=== PATIENT | male | born 1940 | race Caucasian/White ===

== ENCOUNTER 2020-09-14 07:20 | Inpatient (IN) ==
[2020-09-14 08:31] LABS: Basophils % 0.2 %; Eosinophils % 0.1 %; Immature Granulocytes % 0.3 % (0-4); Red Cell Distribution Width 19.6 % (11.5-14.5)
[2020-09-14 08:33] LABS: Hematocrit 32.2 % (37.5-50.1); Hemoglobin 9.1 g/dL (12.9-16.9); Lymphocytes # 1.6 K/mcL (0.6-4.6); Lymphocytes % 12.7 %; Mean Corpuscular HGB Conc 28.3 g/dL (31.6-35.5); Mean Corpuscular Hemoglobin 18.1 pg (28.0-33.3); Mean Corpuscular Volume 64.1 fL (83.0-100.0); Monocytes % 7.9 %; Neutrophils # 9.7 K/mcL (1.6-8.9); Platelet Count 241 K/mcL (140-400); Red Blood Count 5.02 M/mcL (4.19-5.50); Segmented Neutrophils % 78.8 %; White Blood Count 12.3 K/mcL (4.3-11.1)
[2020-09-14 08:34] LABS: Bilirubin,Urine Negative (Negative); Blood,Urine Negative (Negative); Clarity,Urine Clear (Clear); Color,Urine Yellow (Yellow); Glucose,Urine (UA) Normal (Normal); Ketones,Urine Negative (Negative); Leukocyte Esterase,Urine Negative (Negative); Nitrite,Urine Negative (Negative); PH,Urine 5.5 pH Units (5.0-8.0); Protein,Urine Trace mg/dL (Neg-Trace); Specific Gravity,Urine 1.019 (1.010-1.025); Urobilinogen,Urine Normal (Normal)
[2020-09-14 08:35] LABS: Amphetamine Screen,Urine Negative ng/mL (Cutoff=1000); Barbiturate Screen,Urine Negative ng/mL (Cutoff=200)
[2020-09-14 08:36] LABS: Benzodiazepines Screen,Urine Negative ng/mL (Cutoff=300); Cannabinoid Screen,Urine Negative ng/mL (Cutoff = 50); Cocaine Screen,Urine Negative ng/mL (Cutoff= 300); Opiate Screen,Urine Negative ng/mL (Cutoff=300); Phencyclidine Screen,Urine Negative ng/mL (Cutoff=25)
[2020-09-14 08:51] LABS: Alanine Aminotransferase 17 Units/L (7-52); Albumin 4.3 g/dL (3.5-5.7); Albumin/Globulin Ratio 1.6 (1.1-2.2); Alkaline Phosphatase 77 Units/L (34-104); Aspartate Amino Transferase 39 Units/L (13-39); BUN/Creatinine Ratio 20 (6-26); Bilirubin,Direct 0.3 mg/dL (0.0-0.2); Bilirubin,Indirect 0.7 mg/dL (0.0-1.0); Blood Urea Nitrogen 45 mg/dL (8-23); Calcium 9.8 mg/dL (8.6-10.3); Carbon Dioxide 24 mEq/L (23-29); Chloride 105 mEq/L (98-107); Ethanol < 10 mg/dL (Less than 10); Globulin 2.7 g/dL (2.4-3.5); Glucose 114 mg/dL (70-105); Osmolality,Calculated 304 (280-300); Potassium 4.3 mEq/L (3.5-5.1); Sodium 141 mEq/L (136-145); Troponin I 0.03 ng/mL (< 0.04); eGFR For African Americans 35 (> 60); eGFR For Non-African Americans 29 (> 60)
[2020-09-14 09:02] LABS: Hypochromasia Present (Not Present); Microcytosis Present (Not Present)
[2020-09-14 09:03] LABS: Platelet Estimate Normal (Normal)
[2020-09-14] MEDS ORDERED: 0.9 % Sodium Chloride 500 ML IVC ONE (09:50)
[2020-09-14] MEDS ORDERED: Naloxone 0.4 MG/ML INJ IVP PRN (12:21)
[2020-09-14] MEDS ORDERED: *HR* Dextrose 50 % in Water (Vial) 50 ML VIAL IVP PRN ×2 (14:32→14:34)
[2020-09-14] MEDS ORDERED: Dextrose Gel 15 GM/37.5 ML TUBE PO PRN ×4 (14:32→14:34)
[2020-09-14] MEDS ORDERED: D5% in Water 1,000 ML IVC PRN ×2 (14:32→14:34)
[2020-09-14] MEDS: Piperacillin/Tazobactam 3.375 GM in 0.9 % Sodium Chloride Mini Bag 100 ML IVPB SCH ×2 (15:15→17:48)
[2020-09-14] MEDS: 0.9 % Sodium Chloride 1,000 ML IVC SCH (15:15)
[2020-09-14] MEDS: rOPINIRole 1 MG TABLET PO SCH ×2 (15:16→20:27)
[2020-09-14] MEDS: Haloperidol Lactate 5 MG/ML VIAL IM PRN (15:16)
[2020-09-14 16:24] LABS: Estimated Average Glucose 169 mg/dl; Hemoglobin A1C 7.5 %
[2020-09-14] MEDS: Vancomycin 1,250 MG/262.5 ML IV.SOLN IVPB SCH (17:46)
[2020-09-14] MEDS: Insulin LISPRO 300 UNITS/3 ML VIAL SUBQ SCH (17:54)
[2020-09-14] MEDS: *HR* Heparin 5,000 UNIT/ML VIAL SQ SCH (19:34)
[2020-09-14] MEDS ORDERED: Insulin LISPRO 300 UNITS/3 ML VIAL SUBQ SCH (21:00)
[2020-09-15] MEDS: Piperacillin/Tazobactam 3.375 GM in 0.9 % Sodium Chloride Mini Bag 100 ML IVPB SCH ×4 (00:18→23:48)
[2020-09-15] MEDS ORDERED: Haloperidol Lactate 5 MG/ML VIAL IVP ONE (03:30)
[2020-09-15] MEDS ORDERED: *HR* Metoprolol 5 MG/5 ML VIAL IVP ONE (05:07)
[2020-09-15] MEDS: 0.9 % Sodium Chloride 1,000 ML IVC SCH (05:33)
[2020-09-15] MEDS: *HR* Heparin 5,000 UNIT/ML VIAL SQ SCH ×2 (05:34→16:38)
[2020-09-15] MEDS: Insulin LISPRO 300 UNITS/3 ML VIAL SUBQ SCH ×4 (07:51→20:56)
[2020-09-15] MEDS ORDERED: Perflutren Lipid Microsphere 1.3 ML in 0.9 % Sodium Chloride 8.7 ML IVP PRN ×2 (08:59→19:46)
[2020-09-15] MEDS ORDERED: Aspirin Enteric Coated 81 MG Tablet PO SCH (09:00)
[2020-09-15] MEDS ORDERED: BuPROPion XL (24 HR) 150 MG TABLET PO SCH (09:00)
[2020-09-15] MEDS: rOPINIRole 1 MG TABLET PO SCH ×3 (09:17→20:56)
[2020-09-15 09:45] LABS: Basophils % 0.3 %; Hemoglobin 8.5 g/dL (12.9-16.9); Red Cell Distribution Width 19.7 % (11.5-14.5)
[2020-09-15 09:46] LABS: Eosinophils % 0.3 %; Hematocrit 31.1 % (37.5-50.1); Immature Granulocytes % 0.3 % (0-4); Lymphocytes # 1.4 K/mcL (0.6-4.6); Lymphocytes % 11.9 %; Mean Corpuscular HGB Conc 27.3 g/dL (31.6-35.5); Mean Corpuscular Hemoglobin 17.8 pg (28.0-33.3); Mean Corpuscular Volume 65.2 fL (83.0-100.0); Mean Platelet Volume 10.4 fL (9.4-12.4); Monocytes # 0.7 K/mcL (0.0-1.3); Monocytes % 5.5 %; Neutrophils # 9.7 K/mcL (1.6-8.9); Platelet Count 214 K/mcL (140-400); Red Blood Count 4.77 M/mcL (4.19-5.50); Segmented Neutrophils % 81.7 %; White Blood Count 11.9 K/mcL (4.3-11.1)
[2020-09-15 10:02] LABS: Calcium 9.3 mg/dL (8.6-10.3); Magnesium 1.5 mg/dL (1.6-2.6); Phosphorous 3.1 mg/dL (2.7-4.5)
[2020-09-15] MEDS ORDERED: Sodium Bicarbonate 75 MEQ in 0.45 % Sodium Chloride 1,000 ML IVC SCH (10:30)
[2020-09-15 12:02] LABS: Hypochromasia Present (Not Present); Microcytosis Present (Not Present); Platelet Estimate Normal (Normal)
[2020-09-15] MEDS ORDERED: ROTIGOTINE TP SCH (13:15)
[2020-09-15] MEDS: Haloperidol Lactate 5 MG/ML VIAL IM PRN (16:18)
[2020-09-15] MEDS: Vancomycin 1,250 MG/262.5 ML IV.SOLN IVPB SCH (16:18)
[2020-09-15] MEDS ORDERED: ROPIVACAINE/PF/NS 0.25% 1 EACH SYRINGE INTRAART ONE (18:28)
[2020-09-15] MEDS ORDERED: Naloxone 0.4 MG/ML INJ IVP PRN (19:46)
[2020-09-15] MEDS ORDERED: Dextrose Gel 15 GM/37.5 ML TUBE PO PRN ×4 (19:46)
[2020-09-15] MEDS ORDERED: D5% in Water 1,000 ML IVC PRN (19:46)
[2020-09-15] MEDS ORDERED: Haloperidol Lactate 5 MG/ML VIAL IM PRN (19:46)
[2020-09-15] MEDS ORDERED: *HR* Dextrose 50 % in Water (Vial) 50 ML VIAL IVP PRN (19:46)
[2020-09-15] MEDS: Sodium Bicarbonate 75 MEQ in 0.45 % Sodium Chloride 1,000 ML IVC SCH (23:48)
[2020-09-16 02:08] LABS: Basophils % 0.2 %; Eosinophils # 0.1 K/mcL (0.0-0.6); Eosinophils % 0.4 %; Hematocrit 30.5 % (37.5-50.1); Hemoglobin 8.5 g/dL (12.9-16.9); Immature Granulocytes % 0.2 % (0-4); Lymphocytes # 1.5 K/mcL (0.6-4.6); Lymphocytes % 11.5 %; Mean Corpuscular HGB Conc 27.9 g/dL (31.6-35.5); Mean Corpuscular Volume 64.5 fL (83.0-100.0); Mean Platelet Volume 10.7 fL (9.4-12.4); Monocytes # 0.7 K/mcL (0.0-1.3); Platelet Count 214 K/mcL (140-400); Red Blood Count 4.73 M/mcL (4.19-5.50); Red Cell Distribution Width 19.9 % (11.5-14.5); Segmented Neutrophils % 82.7 %
[2020-09-16 02:12] LABS: Anisocytosis 1+ (Not Present); Hypochromasia Present (Not Present); Microcytosis Present (Not Present); Neutrophils # 10.8 K/mcL (1.6-8.9); Platelet Estimate Normal (Normal)
[2020-09-16 02:27] LABS: BUN/Creatinine Ratio 23 (6-26); Blood Urea Nitrogen 27 mg/dL (8-23); Calcium 8.8 mg/dL (8.6-10.3); Carbon Dioxide 20 mEq/L (23-29); Chloride 111 mEq/L (98-107); Creatine Kinase 818 Units/L (30-223); Glucose 85 mg/dL (70-105); Magnesium 1.8 mg/dL (1.6-2.6); Osmolality,Calculated 304 (280-300); Phosphorous 2.8 mg/dL (2.7-4.5); Potassium 3.5 mEq/L (3.5-5.1); Sodium 145 mEq/L (136-145); eGFR For African Americans > 60 (> 60); eGFR For Non-African Americans 59 (> 60)
[2020-09-16 02:33] LABS: Iron 17 mcg/dL (65-175)
[2020-09-16 02:43] LABS: Ferritin 14 ng/mL (20-250)
[2020-09-16 02:49] LABS: Folate 19.8 ng/mL (3.0-16.0)
[2020-09-16] MEDS: *HR* Heparin 5,000 UNIT/ML VIAL SQ SCH ×2 (03:47→16:28)
[2020-09-16 03:52] LABS: % Iron Saturation 4 % (20-55); Transferrin 270 mg/dL (203-362)
[2020-09-16] MEDS: Insulin LISPRO 300 UNITS/3 ML VIAL SUBQ SCH ×4 (07:24→19:47)
[2020-09-16] MEDS: Piperacillin/Tazobactam 3.375 GM in 0.9 % Sodium Chloride Mini Bag 100 ML IVPB SCH ×3 (10:49→23:22)
[2020-09-16] MEDS: rOPINIRole 1 MG TABLET PO SCH ×3 (10:50→19:55)
[2020-09-16] MEDS: Aspirin Enteric Coated 81 MG Tablet PO SCH (10:50)
[2020-09-16] MEDS: [UNRECOGNIZED DRUG - OTHER] TP SCH (10:51)
[2020-09-16] MEDS: ROTIGOTINE TP SCH (10:51)
[2020-09-16] MEDS: Sodium Bicarbonate 75 MEQ in 0.45 % Sodium Chloride 1,000 ML IVC SCH (12:25)
[2020-09-16] MEDS: Vancomycin 1,250 MG/262.5 ML IV.SOLN IVPB SCH (16:29)
[2020-09-17] MEDS: *HR* Heparin 5,000 UNIT/ML VIAL SQ SCH ×2 (05:15→17:57)
[2020-09-17 07:15] LABS: Basophils % 0.3 %
[2020-09-17 07:16] LABS: Eosinophils # 0.2 K/mcL (0.0-0.6); Eosinophils % 2.3 %; Hematocrit 29.3 % (37.5-50.1); Hemoglobin 8.2 g/dL (12.9-16.9); Immature Granulocytes % 0.4 % (0-4); Lymphocytes # 1.7 K/mcL (0.6-4.6); Lymphocytes % 21.6 %; Mean Corpuscular Hemoglobin 18.3 pg (28.0-33.3); Mean Corpuscular Volume 65.3 fL (83.0-100.0); Mean Platelet Volume 10.3 fL (9.4-12.4); Monocytes # 0.5 K/mcL (0.0-1.3); Neutrophils # 5.4 K/mcL (1.6-8.9); Platelet Count 198 K/mcL (140-400); Red Blood Count 4.49 M/mcL (4.19-5.50); Red Cell Distribution Width 19.9 % (11.5-14.5); Segmented Neutrophils % 69.4 %; White Blood Count 7.8 K/mcL (4.3-11.1)
[2020-09-17 07:39] LABS: Blood Urea Nitrogen 20 mg/dL (8-23); Calcium 8.4 mg/dL (8.6-10.3); Carbon Dioxide 25 mEq/L (23-29); Chloride 106 mEq/L (98-107); Creatine Kinase 366 Units/L (30-223); Glucose 110 mg/dL (70-105); Osmolality,Calculated 295 (280-300); Potassium 3.2 mEq/L (3.5-5.1); Sodium 141 mEq/L (136-145)
[2020-09-17 07:45] LABS: Acanthocytes 1+ (Not Present); Hypochromasia Present (Not Present); Platelet Estimate Normal (Normal); Poikilocytosis 1+ (Not Present)
[2020-09-17] MEDS: Insulin LISPRO 300 UNITS/3 ML VIAL SUBQ SCH ×4 (08:32→20:35)
[2020-09-17] MEDS: ROTIGOTINE TP SCH (09:11)
[2020-09-17] MEDS: [UNRECOGNIZED DRUG - OTHER] TP SCH (09:11)
[2020-09-17] MEDS: Aspirin Enteric Coated 81 MG Tablet PO SCH (09:12)
[2020-09-17] MEDS: rOPINIRole 1 MG TABLET PO SCH ×3 (09:12→20:33)
[2020-09-17] MEDS: Piperacillin/Tazobactam 3.375 GM in 0.9 % Sodium Chloride Mini Bag 100 ML IVPB SCH ×3 (09:12→23:46)
[2020-09-17 09:58] LABS: BUN/Creatinine Ratio 17 (6-26); eGFR For African Americans > 60 (> 60); eGFR For Non-African Americans 59 (> 60)
[2020-09-17] MEDS: Vancomycin 1,250 MG/262.5 ML IV.SOLN IVPB SCH (17:56)
[2020-09-18] MEDS: Piperacillin/Tazobactam 3.375 GM in 0.9 % Sodium Chloride Mini Bag 100 ML IVPB SCH ×3 (02:04→17:18)
[2020-09-18 05:24] LABS: Immature Granulocytes % 0.2 % (0-4); Mean Platelet Volume 10.1 fL (9.4-12.4); Monocytes % 6.5 %
[2020-09-18 05:25] LABS: Basophils % 0.2 %; Eosinophils # 0.2 K/mcL (0.0-0.6); Eosinophils % 2.6 %; Hematocrit 29.2 % (37.5-50.1); Hemoglobin 8.2 g/dL (12.9-16.9); Lymphocytes # 1.7 K/mcL (0.6-4.6); Lymphocytes % 21.1 %; Mean Corpuscular HGB Conc 28.1 g/dL (31.6-35.5); Mean Corpuscular Hemoglobin 18.4 pg (28.0-33.3); Mean Corpuscular Volume 65.5 fL (83.0-100.0); Monocytes # 0.5 K/mcL (0.0-1.3); Neutrophils # 5.6 K/mcL (1.6-8.9); Platelet Count 209 K/mcL (140-400); Red Blood Count 4.46 M/mcL (4.19-5.50); Red Cell Distribution Width 19.9 % (11.5-14.5); Segmented Neutrophils % 69.4 %; White Blood Count 8.1 K/mcL (4.3-11.1)
[2020-09-18] MEDS: *HR* Heparin 5,000 UNIT/ML VIAL SQ SCH ×2 (05:35→17:20)
[2020-09-18 05:45] LABS: BUN/Creatinine Ratio 15 (6-26); Blood Urea Nitrogen 18 mg/dL (8-23); Calcium 8.5 mg/dL (8.6-10.3); Carbon Dioxide 23 mEq/L (23-29); Chloride 108 mEq/L (98-107); Glucose 106 mg/dL (70-105); Magnesium 1.4 mg/dL (1.6-2.6); Osmolality,Calculated 294 (280-300); Potassium 3.5 mEq/L (3.5-5.1); Sodium 141 mEq/L (136-145); eGFR For African Americans > 60 (> 60); eGFR For Non-African Americans 59 (> 60)
[2020-09-18] MEDS ORDERED: Magnesium Sulfate 1 GM/102 ML PIGGYBACK IVPB ONE (07:34)
[2020-09-18] MEDS: Insulin LISPRO 300 UNITS/3 ML VIAL SUBQ SCH ×4 (09:40→23:42)
[2020-09-18] MEDS: [UNRECOGNIZED DRUG - OTHER] TP SCH (09:42)
[2020-09-18] MEDS: ROTIGOTINE TP SCH (09:42)
[2020-09-18] MEDS: rOPINIRole 1 MG TABLET PO SCH ×3 (09:43→21:07)
[2020-09-18] MEDS: Aspirin Enteric Coated 81 MG Tablet PO SCH (09:44)
[2020-09-18 12:53] LABS: Creatine Kinase 220 Units/L (30-223)
[2020-09-18 14:03] LABS: Thyroid Stimulating Hormone 2.491 mcIU/mL (0.340-5.600)
[2020-09-18] MEDS: Vancomycin 1,250 MG/262.5 ML IV.SOLN IVPB SCH (17:19)
[2020-09-19 02:07] LABS: Basophils % 0.3 %; Eosinophils # 0.1 K/mcL (0.0-0.6); Eosinophils % 1.9 %; Hematocrit 29.7 % (37.5-50.1); Hemoglobin 8.1 g/dL (12.9-16.9); Immature Granulocytes % 0.3 % (0-4); Lymphocytes # 1.4 K/mcL (0.6-4.6); Lymphocytes % 20.2 %; Mean Corpuscular HGB Conc 27.3 g/dL (31.6-35.5); Mean Corpuscular Volume 66.1 fL (83.0-100.0); Mean Platelet Volume 10.1 fL (9.4-12.4); Monocytes # 0.5 K/mcL (0.0-1.3); Monocytes % 7.1 %; Neutrophils # 4.8 K/mcL (1.6-8.9); Platelet Count 225 K/mcL (140-400); Red Blood Count 4.49 M/mcL (4.19-5.50); Red Cell Distribution Width 20.6 % (11.5-14.5); Segmented Neutrophils % 70.2 %; White Blood Count 6.8 K/mcL (4.3-11.1)
[2020-09-19] MEDS: Piperacillin/Tazobactam 3.375 GM in 0.9 % Sodium Chloride Mini Bag 100 ML IVPB SCH (02:12)
[2020-09-19 02:25] LABS: BUN/Creatinine Ratio 13 (6-26); Blood Urea Nitrogen 16 mg/dL (8-23); Calcium 8.6 mg/dL (8.6-10.3); Carbon Dioxide 22 mEq/L (23-29); Chloride 109 mEq/L (98-107); Glucose 128 mg/dL (70-105); Magnesium 1.5 mg/dL (1.6-2.6); Osmolality,Calculated 295 (280-300); Potassium 3.6 mEq/L (3.5-5.1); Sodium 141 mEq/L (136-145); eGFR For African Americans > 60 (> 60); eGFR For Non-African Americans 57 (> 60)
[2020-09-19 02:33] LABS: Anisocytosis 1+ (Not Present); Hypochromasia Present (Not Present); Microcytosis Present (Not Present); Ovalocytes 1+ (Not Present); Platelet Estimate Normal (Normal); Poikilocytosis 1+ (Not Present)
[2020-09-19] MEDS: *HR* Heparin 5,000 UNIT/ML VIAL SQ SCH ×2 (05:38→17:32)
[2020-09-19] MEDS ORDERED: Magnesium Sulfate 1 GM/102 ML PIGGYBACK IVPB ONE (07:38)
[2020-09-19] MEDS: Insulin LISPRO 300 UNITS/3 ML VIAL SUBQ SCH ×4 (08:14→23:49)
[2020-09-19] MEDS: ROTIGOTINE TP SCH (08:39)
[2020-09-19] MEDS: [UNRECOGNIZED DRUG - OTHER] TP SCH (08:39)
[2020-09-19] MEDS: cephALEXin 500 MG CAPSULE PO SCH ×3 (08:40→21:18)
[2020-09-19] MEDS: Aspirin Enteric Coated 81 MG Tablet PO SCH (08:40)
[2020-09-19] MEDS: rOPINIRole 1 MG TABLET PO SCH ×3 (08:41→21:17)
[2020-09-19] MEDS: Artificial Tears SOLN 15 ML BOTTLE BOTH EYES PRN (17:33)
[2020-09-20 04:54] LABS: Hematocrit 29.6 % (37.5-50.1); Hemoglobin 8.2 g/dL (12.9-16.9); Mean Corpuscular HGB Conc 27.7 g/dL (31.6-35.5); Mean Corpuscular Hemoglobin 18.1 pg (28.0-33.3); Mean Corpuscular Volume 65.3 fL (83.0-100.0); Mean Platelet Volume 10.5 fL (9.4-12.4); Platelet Count 246 K/mcL (140-400); Red Blood Count 4.53 M/mcL (4.19-5.50); Red Cell Distribution Width 20.5 % (11.5-14.5); White Blood Count 7.5 K/mcL (4.3-11.1)
[2020-09-20 05:16] LABS: BUN/Creatinine Ratio 14 (6-26); Blood Urea Nitrogen 17 mg/dL (8-23); Calcium 8.6 mg/dL (8.6-10.3); Carbon Dioxide 22 mEq/L (23-29); Chloride 109 mEq/L (98-107); Glucose 120 mg/dL (70-105); Osmolality,Calculated 295 (280-300); Potassium 3.6 mEq/L (3.5-5.1); Sodium 141 mEq/L (136-145); eGFR For African Americans > 60 (> 60); eGFR For Non-African Americans 59 (> 60)
[2020-09-20] MEDS: *HR* Heparin 5,000 UNIT/ML VIAL SQ SCH ×2 (05:40→17:09)
[2020-09-20] MEDS: Aspirin Enteric Coated 81 MG Tablet PO SCH (09:00)
[2020-09-20] MEDS: Insulin LISPRO 300 UNITS/3 ML VIAL SUBQ SCH ×3 (09:01→16:43)
[2020-09-20] MEDS: rOPINIRole 1 MG TABLET PO SCH ×3 (09:01→19:34)
[2020-09-20] MEDS: cephALEXin 500 MG CAPSULE PO SCH ×3 (09:01→19:34)
[2020-09-20] MEDS: [UNRECOGNIZED DRUG - OTHER] TP SCH (09:24)
[2020-09-20] MEDS: ROTIGOTINE TP SCH (09:24)
[2020-09-20] MEDS: amLODIPine 5 MG TABLET PO SCH (17:24)
[2020-09-20] MEDS: Artificial Tears SOLN 15 ML BOTTLE BOTH EYES PRN (19:49)
[2020-09-21] MEDS: Insulin LISPRO 300 UNITS/3 ML VIAL SUBQ SCH ×3 (00:31→11:39)
[2020-09-21] MEDS: *HR* Heparin 5,000 UNIT/ML VIAL SQ SCH (05:21)
[2020-09-21] MEDS: amLODIPine 5 MG TABLET PO SCH (08:42)
[2020-09-21] MEDS: Aspirin Enteric Coated 81 MG Tablet PO SCH (08:42)
[2020-09-21] MEDS: cephALEXin 500 MG CAPSULE PO SCH (08:42)
[2020-09-21] MEDS: rOPINIRole 1 MG TABLET PO SCH (08:42)
[2020-09-21] MEDS: [UNRECOGNIZED DRUG - OTHER] TP SCH (08:43)
[2020-09-21] MEDS: ROTIGOTINE TP SCH (08:43)
[2020-09-21 10:44] VITALS: BP 155/75; PULSE 86; TEMP 97.5; O2SAT 95
== END 2020-09-21 15:12 | DRG 464 ==
LOC: EMEROOARM 07:20 → 3BNU 07:20 → SUATTDRO 10:35 → 3BNU 11:21 → SUATTDRO 09-15 17:14
PROVIDERS: ADMIT Student in an Organized Health Care Education/Training Program; ATTEND Registered Nurse